=== PATIENT | female | born 2000 | race Caucasian/White ===

== ENCOUNTER 2023-02-09 07:32 | Emergency (ER) | payer MEDICAID ==
[~2023-02-09] VITALS: Ht 162.6 cm; Wt 88.5 kg
[2023-02-09 07:46] VITALS: BP 131/83; PULSE 76; RESP 18; TEMP 97.6; O2SAT 99
[2023-02-09] MEDS ORDERED: ACET-10509 PO (08:37)
--- NOTE | 2023-02-09 08:41 | NUR ---
Patient discharged with v/s stable. Written and verbal after care instructions FOR [facility] given and explained. Patient alert, oriented and verbalized understanding of instructions. Ambulatory with steady gait. All questions addressed prior to discharge. ID band removed. Patient advised to follow up with PMD. Rx of TYLENOL XTRA STRENGTH given. Opportunity to ask questions provided and answered.
== END 2023-02-09 08:41 | disposition home or self-care (01) ==
LOC: MED 07:32
DX: H92.02 Otalgia, left ear (principal); R22.2 Localized swelling, mass and lump, trunk; Z79.899 Other long term (current) drug therapy
CPT/HCPCS: 99282